=== PATIENT | female | born 1985 | race Caucasian/White ===

== ENCOUNTER 2024-05-18 00:08 | Emergency (ER) | payer SELFPAY ==
[~2024-05-18] VITALS: Ht 165.1 cm; Wt 86.1 kg
[2024-05-18 00:17] VITALS: BP 144/94; PULSE 109; RESP 16; O2SAT 98
[2024-05-18 00:52] LABS: BASOPHILS % 0.5 % (0.0-2.0); DIFFERENTIAL COMMENT 0; EOSINOPHILS % 1.1 % (0.0-5.0); HEMATOCRIT. 35.4 % (36.0-48.0); HEMOGLOBIN. 11.2 g/dL (12.0-16.0); LYMPHOCYTES % 22.6 % (20.0-50.0); MEAN CORPUSCULAR HEMOGLOBIN 24.7 pg (28.0-32.0); MEAN CORPUSCULAR HGB CONC 31.6 g/dL (31.0-37.0); MEAN CORPUSCULAR VOLUME 78.2 fL (81.0-99.0); MEAN PLATELET VOLUME 9.4 fl (7.4-10.4); MONOCYTES % 4.7 % (2.0-8.0); NEUTROPHILS % 71.1 % (40.0-76.0); PLATELET 308 x1000/uL (130-400); RED BLOOD CELL COUNT 4.53 mill/uL (4.2-5.4); RED CELL DISTRIBUTION WIDTH 16.5 % (11.6-14.6); WHITE BLOOD COUNT 13.1 x1000/uL (4.5-11.0)
[2024-05-18 00:59] LABS: CHLORIDE 109 mEq/L (98-107); POTASSIUM 3.7 mEq/L (3.5-5.1); SODIUM 138 mEq/L (136-145)
[2024-05-18 01:00] LABS: CALCIUM 9.2 mg/dL (8.7-10.4); CARBON DIOXIDE 23 mEq/L (21-32)
[2024-05-18 01:05] LABS: CREATININE 0.7 mg/dL (0.6-1.0); GLUCOSE 149 mg/dL (70-105); UREA NITROGEN BLOOD 13 mg/dL (9-23)
[2024-05-18] MEDS ORDERED: ACETAMINOPHEN 325MG TABLET PO ONE (01:15)
[2024-05-18] MEDS ORDERED: AMOXICILLIN/POTASSIUM CLAVULANATE 875/125MG TAB PO ONE (01:15)
[2024-05-18 01:20] LABS: TROPONIN I HIGH SENSITIVITY 41 ng/L (3.0-34)
[2024-05-18 02:19] LABS: HCG SCREEN NEGATIVE
[2024-05-18 02:44] LABS: TROPONIN I HIGH SENSITIVITY 32 ng/L (3.0-34)
[2024-05-18 02:46] VITALS: TEMP 98.2
[2024-05-18] MEDS: ACETAMINOPHEN 325MG TABLET PO NR (02:46)
[2024-05-18] MEDS: DEXAMETHASONE 4MG TABLET PO ONE (02:46)
[2024-05-18] MEDS: AMOXICILLIN/POTASSIUM CLAVULANATE 875/125MG TAB PO NR (02:46)
[2024-05-18] MEDS: GUAIFENESIN/DM 600MG/30MG ER TAB 12HR PO PRN (02:47)
[2024-05-18 05:12] LABS: TROPONIN I HIGH SENSITIVITY 21 ng/L (3.0-34)
[2024-05-18] MEDS ORDERED: ACET-2708 MT (05:56)
[2024-05-18] MEDS ORDERED: AMOX1TAB16 MT (05:56)
== END 2024-05-18 06:09 | disposition left against medical advice (07) ==
LOC: ER 00:08
DX: R07.9 Chest pain, unspecified (principal); J32.0 Chronic maxillary sinusitis; R79.89 Other specified abnormal findings of blood chemistry; I10 Essential (primary) hypertension; E11.9 Type 2 diabetes mellitus without complications; Z88.6 Allergy status to analgesic agent; Z98.890 Other specified postprocedural states
CPT/HCPCS: 99285; 71045; 80048; 84703; 83880; 85025; 84484; 93005; 36415; J8540

== ENCOUNTER 2024-07-14 09:31 | Emergency (ER) | payer SELFPAY ==
[~2024-07-14] VITALS: Ht 165.1 cm; Wt 81.6 kg
[~2024-07-14 09:31] MED LIST: ACET-2708 MT; AMOX1TAB16 MT
[2024-07-14 09:52] VITALS: O2SAT 98
[2024-07-14] MEDS ORDERED: DEXAMETHASONE 4MG/ML 1ML VIAL IM SCH (13:30)
[2024-07-14] MEDS ORDERED: FLUCONAZOLE 100MG TABLET PO ONE (13:30)
[2024-07-14] MEDS: DEXAMETHASONE 10 MG/ML VIAL IM NR (14:27)
[2024-07-14] MEDS: AMOXICILLIN/POTASSIUM CLAVULANATE 875/125MG TAB PO ONE (14:27)
[2024-07-14] MEDS: FLUCONAZOLE 150MG TABLET PO NR (14:29)
[2024-07-14 14:45] VITALS: BP 116/63; PULSE 83; RESP 18; TEMP 36.94740; O2SAT 98
[2024-07-14] MEDS ORDERED: AMOX1TAB16 MT (14:57)
[2024-07-14] MEDS ORDERED: FLUC150T46 MT (15:02)
== END 2024-07-14 15:37 | disposition home or self-care (01) ==
LOC: ER 09:51
DX: R07.0 Pain in throat (principal); H92.02 Otalgia, left ear; M54.2 Cervicalgia; D64.9 Anemia, unspecified; E11.9 Type 2 diabetes mellitus without complications; E78.00 Pure hypercholesterolemia, unspecified; Z90.49 Acquired absence of other specified parts of digestive tract; Z88.6 Allergy status to analgesic agent; Z98.890 Other specified postprocedural states
CPT/HCPCS: 99283; 81025; 87430; 87070; 96372; J1100

== ENCOUNTER 2025-01-26 19:12 | Emergency (ER) | payer SELFPAY ==
[~2025-01-26] VITALS: Ht 165.1 cm; Wt 74.8 kg
[~2025-01-26 19:12] MED LIST changes: +FLUC150T46 MT
[2025-01-26 19:14] VITALS: O2SAT 99
[2025-01-26] MEDS: ACETAMINOPHEN 325MG TABLET PO STA (21:44)
[2025-01-26 21:49] LABS: BASOPHILS % 0.4 % (0.0-2.0); DIFFERENTIAL COMMENT 0; EOSINOPHILS % 2.1 % (0.0-5.0); HEMATOCRIT. 30.9 % (36.0-48.0); HEMOGLOBIN. 9.7 g/dL (12.0-16.0); LYMPHOCYTES % 27.3 % (20.0-50.0); MEAN CORPUSCULAR HEMOGLOBIN 22.2 pg (28.0-32.0); MEAN CORPUSCULAR HGB CONC 31.3 g/dL (31.0-37.0); MEAN PLATELET VOLUME 9.4 fl (7.4-10.4); NEUTROPHILS % 65.2 % (40.0-76.0); PLATELET 304 x1000/uL (130-400); RED BLOOD CELL COUNT 4.35 mill/uL (4.2-5.4); RED CELL DISTRIBUTION WIDTH 18.3 % (11.6-14.6); WHITE BLOOD COUNT 10.9 x1000/uL (4.5-11.0)
[2025-01-26 21:55] LABS: CHLORIDE 106 mEq/L (98-107); POTASSIUM 4.2 mEq/L (3.5-5.1); SODIUM 138 mEq/L (136-145)
[2025-01-26 21:56] LABS: CALCIUM 9.4 mg/dL (8.7-10.4); CARBON DIOXIDE 24 mEq/L (21-32)
[2025-01-26 22:01] LABS: CREATININE 0.8 mg/dL (0.6-1.0); GLUCOSE 238 mg/dL (70-105); UREA NITROGEN BLOOD 12 mg/dL (9-23)
[2025-01-26 22:09] LABS: HCG SCREEN NEGATIVE
[2025-01-26 22:11] LABS: TROPONIN I HIGH SENSITIVITY < 4 ng/L (3.0-34)
[2025-01-27] MEDS ORDERED: INSU100I28 SQ (00:17)
[2025-01-27] MEDS ORDERED: FERR324T4 MT (02:26)
[2025-01-27 03:08] VITALS: BP 111/55; PULSE 63; RESP 19; TEMP 36.8; O2SAT 100
[2025-01-27] MEDS ORDERED: IOHEXOL-350 100 ML BOTTLE ONE (06:19)
== END 2025-01-27 03:23 | disposition home or self-care (01) ==
LOC: ER 19:12
DX: D50.9 Iron deficiency anemia, unspecified (principal); R07.89 Other chest pain; M54.9 Dorsalgia, unspecified; R05.9 Cough, unspecified; E11.65 Type 2 diabetes mellitus with hyperglycemia; E78.00 Pure hypercholesterolemia, unspecified; Z79.4 Long term (current) use of insulin; Z88.6 Allergy status to analgesic agent; Z90.49 Acquired absence of other specified parts of digestive tract; Z91.148 Patient's other noncompliance with medication regimen for other reason
CPT/HCPCS: 80048; 84703; 85025; 85379; 84484; 36415; 71045; 93005; 99285; 71275; Z7610; Q9967